=== PATIENT | female | born 2000 | race Caucasian/White ===

== ENCOUNTER 2024-03-22 10:28 | Emergency (ER) | payer OTHER ==
[~2024-03-22] VITALS: Ht 152.4 cm; Wt 46.2 kg
[2024-03-22 10:34] VITALS: BP 125/75; PULSE 81; RESP 16; TEMP 98.5; O2SAT 99
[2024-03-22] MEDS ORDERED: NAPR-56 PO (12:06)
== END 2024-03-22 11:56 | disposition home or self-care (01) ==
LOC: ER 10:29
DX: R07.89 Other chest pain (principal); Z79.899 Other long term (current) drug therapy; V89.2XXA Person injured in unspecified motor-vehicle accident, traffic, initial encounter; Y93.89 Activity, other specified; Y92.89 Other specified places as the place of occurrence of the external cause; Y99.8 Other external cause status
CPT/HCPCS: 71045; 93005; 99283